=== PATIENT | female | born 1985 | race Two or more races ===

== ENCOUNTER 2016-10-26 15:41 | Emergency (ER) | payer BC ==
--- NOTE | 2016-10-26 16:53 | ER Document Report ---
ED Medical Screen (RME) - General TRAVEL OUTSIDE OF THE [place].S[place] IN LAST 30 DAYS: Yes COUNTRY TRAVELED TO/[facility]: [facility] <AKBAR WEBB - Last Filed: 10/26/16 16:51> <GABBY ROSE - Last Filed: 10/26/16 19:29> - General Chief Complaint: Abdominal Pain Stated Complaint: ABDOMINAL PAIN Time Seen by Provider: 10/26/16 16:45 Notes: Patient is a 31 year old female presenting to the emergency department for pain in her left lower quadrant. Patient states her pain is worse with walking, hitting bumps in the road while sitting in a car, and with palpation. Patient's symptoms were onset last night. Patient has had similar pain with intercourse. Patient denies any urinary symptoms but does have vaginal discharge. Patient has no known drug allergies. (AKBAR WEBB) - Related Data Allergies/Adverse Reactions: No Known Allergies Allergy (Verified 10/26/16 15:44) Past Medical History - Social History Cigarette use (# per day): No Chew tobacco use (# tins/day): No Frequency of alcohol use: None Drug Abuse: None Renal/ Medical History: Reports: Hx Kidney Stones. Denies: Hx Peritoneal Dialysis Surgical Hx: Negative <AKBAR WEBB - Last Filed: 10/26/16 16:51> Physical Exam <AKBAR WEBB - Last Filed: 10/26/16 16:51> <GABBY ROSE - Last Filed: 10/26/16 19:29> - Vital signs Vitals: Temp Pulse Resp BP Pulse Ox 98.0 F 99 18 144/82 H 99 10/26/16 15:44 10/26/16 15:44 10/26/16 15:44 10/26/16 15:44 10/26/16 15:44 - Notes Notes: GENERAL: Alert, interacts well. No acute distress. LUNGS: Clear to auscultation bilaterally, no wheezes, rales, or rhonchi. No respiratory distress. HEART: Regular rate and rhythm. No murmurs, gallops, or rubs. (AKBAR WEBB) Course - Laboratory Result Diagrams: 10/26/16 17:03 10/26/16 17:03 <GABBY ROSE - Last Filed: 10/26/16 19:29> - Vital Signs Vital signs: Temp Pulse Resp BP Pulse Ox 98.2 F 79 20 127/82 H 99 10/26/16 18:38 10/26/16 18:38 10/26/16 18:38 10/26/16 18:38 10/26/16 18:38 - Laboratory Laboratory results interpreted by me: 10/26/16 17:03 WBC 11.1 H RBC 5.39 H MCV 76 L MCH 25.0 L RDW 14.4 H Absolute Neutrophils 8.3 H Doctor's Discharge <AKBAR WEBB - Last Filed: 10/26/16 16:51> <GABBY ROSE - Last Filed: 10/26/16 19:29> - Discharge Clinical Impression: right ovarian cyst, LLQ pelvic/lower quadrant pain Condition: Good Disposition: HOME, SELF-CARE Instructions: Abdominal Pain ([facility]), Use of Ulbr-Tur-Mfbdnaw Ibuprofen ([facility]), Ovarian Cyst ([facility]), Pelvic Pain ([facility]) Additional Instructions: warm compress motrin to er if worse urine cultulre is pending see your doctor for follow up labs and imaging report given to you Please complete the patient satisfaction survey if you get one, and return it.. If you do not receive a survey, then you can go to the [facility] website, [email or web address] and place your comments about your very good care. Thank you very much. It was a pleasure being your medical provider today. Scribe Documentation - Scribe Written by Tay:: Tay Wolff 10/26/16 16:53 acting as scribe for :: Ciro <AKBAR WEBB - Last Filed: 10/26/16 16:51>
[2016-10-26 17:21] LABS: ABSOLUTE EOSINOPHILS # (AUTO) 0.1 10^3/uL (0.0-0.6); ABSOLUTE MONOCYTES (AUTO) 0.6 10^3/uL (0.1-1.4); ABSOLUTE NEUT (AUTO) 8.3 10^3/uL (1.7-8.2); BASOPHILS % (AUTO) 0.3 % (0-2); EOSINOPHILS % (AUTO) 0.8 % (0-6); HEMATOCRIT 40.9 % (36.0-47.0); HEMOGLOBIN 13.5 g/dL (12.0-15.5); HGB HCT DIFFERENCE -0.4; LYMPHOCYTES % (AUTO) 18.2 % (13-45); MEAN CORPUSCULAR VOLUME 76 fl (80-97); MONOCYTES % (AUTO) 5.3 % (3-13); RED BLOOD COUNT 5.39 10^6/uL (3.72-5.28); RED CELL DISTRIBUTION WIDTH 14.4 % (11.5-14.0); SEGMENTED NEUTROPHILS % (AUTO) 75.4 % (42-78); WHITE BLOOD COUNT 11.1 10^3/uL (4.0-10.5)
--- NOTE | 2016-10-26 17:31 | ER Document Report ---
ED GI/ - General Chief Complaint: Abdominal Pain Stated Complaint: ABDOMINAL PAIN Time Seen by Provider: 10/26/16 16:45 Mode of Arrival: Ambulatory Information source: Patient Notes: 31-year-old female complaining of left lower quadrant abdominal pain since last night. It has persisted today and she came to be evaluated after work. Normal vaginal discharge without odor. No urinary frequency urgency or dysuria. No nausea vomiting or diarrhea. She had 2 normal soft bowel movements today. No history of STD, , ovarian cyst, ulcerative colitis, Crohn's, diverticulitis. The pain is similar to when she has had a deep penetration with intercourse in the past. States she is trying to get . History of kidney stone but this is not the same kind of pain. She does not have any flank pain or hematuria. She is due to start menses soon. TRAVEL OUTSIDE OF THE [place] IN LAST 30 DAYS: Yes COUNTRY TRAV[facility]ED TO[facility]: [facility] - Related Data Allergies/Adverse Reactions: No Known Allergies Allergy (Verified 10/26/16 15:44) Past Medical History - General Information source: Patient - Social History Smoking Status: Never Smoker Cigarette use (# per day): No Chew tobacco use (# tins/day): No Frequency of alcohol use: None Drug Abuse: None Lives with: Spouse/Significant other Family History: None Patient has suicidal ideation: No Patient has homicidal ideation: No - Medical History Medical History: Negative Renal/ Medical History: Reports: Hx Kidney Stones Surgical Hx: Negative Review of Systems - Review of Systems Constitutional: No symptoms reported EENT: No symptoms reported Cardiovascular: No symptoms reported Respiratory: No symptoms reported Gastrointestinal: See HPI Genitourinary: No symptoms reported Female Genitourinary: No symptoms reported Musculoskeletal: No symptoms reported Skin: No symptoms reported Hematologic/Lymphatic: No symptoms reported Neurological/Psychological: No symptoms reported Physical Exam - Vital signs Vitals: Temp Pulse Resp BP Pulse Ox 98.0 F 99 18 144/82 H 99 10/26/16 15:44 10/26/16 15:44 10/26/16 15:44 10/26/16 15:44 10/26/16 15:44 Interpretation: Normal - General General appearance: Appears well, Alert - HEENT Head: Normocephalic, Atraumatic Eyes: Normal Conjunctiva: Normal Pupils: PERRL Neck: Supple. No: Lymphadenopathy - Respiratory Respiratory status: No respiratory distress Chest status: Nontender Breath sounds: Normal Chest palpation: Normal - Cardiovascular Rhythm: Regular Heart sounds: Normal auscultation Murmur: No - Abdominal Inspection: Normal Distension: No distension Bowel sounds: Normal Tenderness: Tender - LL quadrant, left pelvis. No: Guarding, Rebound Organomegaly: No organomegaly - Back Back: Normal, Nontender. No: CVA tenderness - Extremities General upper extremity: Normal inspection, Nontender, Normal color, Normal ROM , Normal temperature General lower extremity: Normal inspection, Nontender, Normal color, Normal ROM , Normal temperature, Normal weight bearing. No: Radha's sign - Neurological Neuro grossly intact: Yes Cognition: Normal Orientation: AAOx4 [place] Coma Scale Eye Opening: Spontaneous [place] Coma Scale Verbal: Oriented [place] Coma Scale Motor: Obeys Commands [place] Coma Scale Total: 15 Speech: Normal Motor strength normal: LUE, RUE, LLE, RLE Sensory: Normal - Psychological Associated symptoms: Normal affect, Normal mood - Skin Skin Temperature: Warm Skin Moisture: Dry Skin Color: Normal Skin irregularity: negative: Rash Course - Re-evaluation Re-evalutation: 10/26/16 17:36 going to US now. 10/26/16 18:42 labs normal, negative test. mild elevation of white count without shift, US right ovarian cyst with possible rupture, no torsion. I explained to her that this does not explain her left pelvic pain and that she needs to return to the emergency room this weekend if worse and can take Motrin for pain. Pt did not want pelvic exam offered, she will see your doctor. recent pelvic/labs was normal 10/26/16 18:44 - Vital Signs Vital signs: Temp Pulse Resp BP Pulse Ox 98.2 F 79 20 127/82 H 99 10/26/16 18:38 10/26/16 18:38 10/26/16 18:38 10/26/16 18:38 10/26/16 18:38 - Laboratory Result Diagrams: 10/26/16 17:03 10/26/16 17:03 Laboratory results interpreted by me: 10/26/16 17:03 WBC 11.1 H RBC 5.39 H MCV 76 L MCH 25.0 L RDW 14.4 H Absolute Neutrophils 8.3 H Discharge - Discharge Clinical Impression: right ovarian cyst, LLQ pelvic/lower quadrant pain Condition: Good Disposition: HOME, SELF-CARE Instructions: Abdominal Pain ([facility]), Pelvic Pain ([facility]), Ovarian Cyst ([facility]), Use of Qrxp-Xei-Jbknxml Ibuprofen ([facility]) Additional Instructions: warm compress motrin to er if worse urine cultulre is pending see your doctor for follow up labs and imaging report given to you Please complete the patient satisfaction survey if you get one, and return it.. If you do not receive a survey, then you can go to the [facility] website, [email or web address] and place your comments about your very good care. Thank you very much. It was a pleasure being your medical provider today.
[2016-10-26 17:42] LABS: ALANINE AMINOTRANSFERASE 28 U/L (9-52); ALKALINE PHOSPHATASE 80 U/L (38-126); ANION GAP 10 (5-19); ASPARTATE AMINO TRANSFERASE 21 U/L (14-36); BILIRUBIN,DIRECT 0.3 mg/dL (0.0-0.4); BILIRUBIN,TOTAL 0.3 mg/dL (0.2-1.3); BLOOD UREA NITROGEN 13 mg/dL (7-20); CALCIUM 9.7 mg/dL (8.4-10.2); CARBON DIOXIDE 25 mmol/L (22-30); CHLORIDE 104 mmol/L (98-107); CREATININE RESULT 0.69 mg/dL (0.52-1.25); GLUCOSE 82 mg/dL (75-110); POTASSIUM 4.5 mmol/L (3.6-5.0); SODIUM 138.7 mmol/L (137-145); TOTAL PROTEIN 7.6 g/dL (6.3-8.2)
[2016-10-26 17:52] LABS: APPEARANCE,URINE CLEAR; BILIRUBIN,URINE NEGATIVE (NEGATIVE); GLUCOSE, URINE NEGATIVE (NEGATIVE); KETONES,URINE NEGATIVE (NEGATIVE); LEUKOCYTE ESTERASE,URINE NEGATIVE (NEGATIVE); NITRITE,URINE NEGATIVE (NEGATIVE); PROTEIN,URINE NEGATIVE (NEGATIVE); URINE SPECIFIC GRAVITY 1.013; UROBILINOGEN,URINE NEGATIVE mg/dL (<2.0)
--- NOTE | 2016-10-26 18:17 | RADIOLOGY REPORT (SQ) ---
EXAM DESCRIPTION: U/S NON OB PEL TV W/DOPPLER COMPLETED DATE/TIME: 10/26/2016 6:02 pm REASON FOR STUDY: ?cyst, ? torsion COMPARISON: None. TECHNIQUE: Dynamic and static grayscale images acquired of the pelvis via transvaginal approach and recorded on PACS. Additional selected color Doppler and spectral images recorded. LIMITATIONS: None. FINDINGS: UTERUS: Contour normal. No mass. ENDOMETRIAL STRIPE: No focal or generalized thickening. No masses. CERVIX: A nabothian cyst is present. RIGHT OVARY: There is a heterogeneous area in the right ovary measuring 33 x 23 x 23 mm. RIGHT OVARY DOPPLER: Normal arterial vascular flow without evidence for torsion. LEFT OVARY: No abnormal masses. LEFT OVARY DOPPLER: Normal arterial vascular flow without evidence for torsion. FREE FLUID: There is a small amount free fluid in the right adnexa. OTHER: No other significant finding. MEASUREMENTS: UTERUS: 6.2 x 3.9 x 3.6 cm. ENDOMETRIAL STRIPE: 7 mm. RIGHT OVARY: 4.3 x 3.2 x 1.9 cm. LEFT OVARY: 2.7 x 2.3 x 1.9 cm. IMPRESSION: There is a small amount of free fluid in the right adnexa and there is a heterogeneous a dawit the right ovary that could represent a ruptured cyst. Follow-up as clinically indicated. TECHNICAL DOCUMENTATION: JOB ID: [id number] [employer]- All Rights Reserved
[2016-10-26] MEDS ORDERED: IBUPROFEN 800 MG TABLET PO ONE (18:31)
[2016-10-26 18:43] VITALS: BP 127/82
== END 2016-10-26 18:51 | disposition home or self-care (01) ==
LOC: ER 15:41
DX: R10.32 Left lower quadrant pain (principal); N83.201 Unspecified ovarian cyst, right side; R10.2 Pelvic and perineal pain; D72.829 Elevated white blood cell count, unspecified; Z87.442 Personal history of urinary calculi
CPT/HCPCS: 36415; 76830; 80053; 81001; 81025; 85025; 93976; 99284

== ENCOUNTER → 2017-07-05 | Outpatient (CLI) | payer BC ==
--- NOTE | 2017-07-05 17:03 | RADIOLOGY REPORT (SQ) ---
EXAM DESCRIPTION: U/S NON-OB PELVIS TV W/O DOP COMPLETED DATE/TIME: 07/05/2017 4:49 pm REASON FOR STUDY: ABD PAIN, DYSMENORRHEA R10.9 UNSPECIFIED ABDOMINAL PAIN N94.6 DYSMENORRHEA, UNSP ECIFIED LMP 06/29/2017 COMPARISON: None. TECHNIQUE: Dynamic and static grayscale images acquired of the pelvis via transvaginal approach and recorded on PACS. Additional selected color Doppler and spectral images recorded. LIMITATIONS: None. FINDINGS: UTERUS: Contour normal. No mass. ENDOMETRIAL STRIPE: No focal or generalized thickening. No masses. CERVIX: 2.1 cm. No nabothian cysts. RIGHT ADNEXUM: No abnormal masses. RIGHT OVARY AND DOPPLER: Normal size. 1.9 x 3.6 x 1.6 cm. LEFT ADNEXUM: No abnormal masses. LEFT OVARY AND DOPPLER: Ovary not seen. FREE FLUID: None noted. OTHER: No other significant finding. MEASUREMENTS: UTERUS: 5.5 x 4.2 x 4.1 cm. ENDOMETRIAL STRIPE: 1.9 mm. RIGHT OVARY: 1.9 x 3.6 x 1.6 cm. LEFT OVARY: Ovary not seen. IMPRESSION: NORMAL TRANSVAGINAL PELVIC ULTRASOUND. TECHNICAL DOCUMENTATION: JOB ID: [id number] [employer]- All Rights Reserved Reading location - IP/workstation name: [email or web address]
== END ==
LOC: RAD 16:10
PROVIDERS: ATTEND Obstetrics & Gynecology Gynecology
DX: R10.9 Unspecified abdominal pain (principal); N94.6 Dysmenorrhea, unspecified
CPT/HCPCS: 76830

== ENCOUNTER 2018-04-03 18:57 | Emergency (ER) | payer BC ==
[2018-04-03] MEDS ORDERED: DIPHENHYDRAMINE HCL 50 MG/ML VIAL IV ONE ×2 (19:37→19:38)
[2018-04-03] MEDS ORDERED: DIPHENHYDRAMINE HCL 50 MG CAPSULE PO ONE (19:37)
[2018-04-03] MEDS ORDERED: FAMOTIDINE INJ/PF 20 MG/2 ML SDV IV ONE (19:38)
[2018-04-03] MEDS ORDERED: DIPHENHYDRAMINE HCL 25 MG CAPSULE PO ONE (19:38)
--- NOTE | 2018-04-03 19:41 | ER Document Report ---
ED Medical Screen (RME) - General Chief Complaint: Vaginal Bleeding Stated Complaint: VAGINAL BLEEDING Time Seen by Provider: 04/03/18 19:32 Primary Care Provider: LIZETH MURCIA MD [Primary Care Provider] - Follow up as needed TRAVEL OUTSIDE OF THE [place] IN LAST 30 DAYS: No COUNTRY TRAVELED TO[facility]FROM: [facility] Notes: 04/03/18 19:40 Approximate 7 weeks with vaginal bleeding spotting also having diffuse itching and hive patient states she recently had her hair dyed did not rinse out the dye and therefore now is itching. Benadryl Pepcid was ordered p.o. while the patient was waiting for her IV - Related Data Allergies/Adverse Reactions: No Known Allergies Allergy (Verified 10/26/16 15:44) Past Medical History - General Last Menstrual Period: 02/11/18 - Social History Chew tobacco use (# tins/day): No Frequency of alcohol use: None Drug Abuse: None Renal/ Medical History: Reports: Hx Kidney Stones. Denies: Hx Peritoneal Dialysis Physical Exam - Vital signs Vitals: Temp Pulse Resp BP Pulse Ox 98.1 F 114 H 16 141/89 H 97 04/03/18 19:25 04/03/18 19:25 04/03/18 19:25 04/03/18 19:25 04/03/18 19:25 Course - Vital Signs Vital signs: Temp Pulse Resp BP Pulse Ox 98.1 F 114 H 16 141/89 H 97 04/03/18 19:25 04/03/18 19:25 04/03/18 19:25 04/03/18 19:25 04/03/18 19:25 Doctor's Discharge - Discharge Referrals: LIZETH MURCIA MD [Primary Care Provider] - Follow up as needed
[2018-04-03 20:26] LABS: APPEARANCE,URINE SLIGHTLY-CLOUDY; BILIRUBIN,URINE NEGATIVE (NEGATIVE); COLOR,URINE YELLOW; GLUCOSE, URINE NEGATIVE (NEGATIVE); KETONES,URINE NEGATIVE (NEGATIVE); LEUKOCYTE ESTERASE,URINE NEGATIVE (NEGATIVE); NITRITE,URINE NEGATIVE (NEGATIVE); PROTEIN,URINE 30 mg/dL (NEGATIVE); URINE SPECIFIC GRAVITY 1.013; UROBILINOGEN,URINE NEGATIVE mg/dL (<2.0)
[2018-04-03 21:02] LABS: ABSOLUTE LYMPHOCYTES (AUTO) 1.3 10^3/uL (0.5-4.7); ABSOLUTE MONOCYTES (AUTO) 0.5 10^3/uL (0.1-1.4); ABSOLUTE NEUT (AUTO) 11.6 10^3/uL (1.7-8.2); BASOPHILS % (AUTO) 0.1 % (0-2); HEMATOCRIT 40.4 % (36.0-47.0); HEMOGLOBIN 13.4 g/dL (12.0-15.5); MEAN CORPUSCULAR HEMOGLOBIN 24.5 pg (27.0-33.4); MEAN CORPUSCULAR HGB CONC 33.2 g/dL (32.0-36.0); MEAN CORPUSCULAR VOLUME 74 fl (80-97); MONOCYTES % (AUTO) 3.6 % (3-13); PLATELET COUNT 239 10^3/uL (150-450); RED BLOOD COUNT 5.47 10^6/uL (3.72-5.28); RED CELL DISTRIBUTION WIDTH 15.4 % (11.5-14.0); SEGMENTED NEUTROPHILS % (AUTO) 86.3 % (42-78); TOTAL CELLS COUNTED % (AUTO) 100 %; WHITE BLOOD COUNT 13.4 10^3/uL (4.0-10.5)
[2018-04-03 21:19] LABS: ANION GAP 12 (5-19); BLOOD UREA NITROGEN 11 mg/dL (7-20); CALCIUM 9.3 mg/dL (8.4-10.2); CARBON DIOXIDE 22 mmol/L (22-30); CHLORIDE 103 mmol/L (98-107); GLUCOSE 98 mg/dL (75-110); POTASSIUM 3.9 mmol/L (3.6-5.0); SODIUM 137.1 mmol/L (137-145)
--- NOTE | 2018-04-03 21:40 | RADIOLOGY REPORT (SQ) ---
US PELVIS HISTORY: Early . Pelvic pain. COMPARISON: None. TECHNIQUE: Grayscale, color Doppler, and spectral Doppler ultrasound images of the pelvis were obtained. FINDINGS: There is an intrauterine gestational sac with a yolk sac and pole visualized. The gestational sac has a normal contour. The heart rate measures 102 bpm. The crown-rump length measuring 1.2 cm corresponding to 7 weeks 2 days of . The cervix measures 1.8 cm in length. The ovaries are not well-visualized. No pelvic free fluid is seen. IMPRESSION: Single live IUP with estimated gestational age 7 weeks 2 days.
--- NOTE | 2018-04-03 22:38 | ER Document Report ---
ED General - General Chief Complaint: Vaginal Bleeding Stated Complaint: VAGINAL BLEEDING Time Seen by Provider: 04/03/18 19:32 Primary Care Provider: LIZETH MURCIA MD [Primary Care Provider] - Follow up as needed Notes: Patient is a 32-year-old female, at 7 weeks gestation by 6-week ultrasound, with chief complaint of lower abdominal cramping and initial vaginal bleeding which has slowed down now and is vaginal spotting. Symptoms started earlier today. Denies hematuria, flank pain, dysuria, vaginal discharge, current abdominal pain. Denies trauma. Has medical history of kidney stones, she states she definitely does not feel like she is passing a kidney stone. Patient stating that she was itching mainly in her hair to leave and come to be evaluated here, she will washes shot later. She already received antihistamines from triage, states she has no current symptoms of itching. No rash. No other allergic type symptoms reported including throat or airway. TRAVEL OUTSIDE OF THE [place] IN LAST 30 DAYS: No COUNTRY TRAVELED TO/FROM: [facility] - Related Data Allergies/Adverse Reactions: No Known Allergies Allergy (Verified 10/26/16 15:44) Past Medical History - General Information source: Patient Last Menstrual Period: 02/11/18 - Social History Smoking Status: Never Smoker Chew tobacco use (# tins/day): No Frequency of alcohol use: None Drug Abuse: None Lives with: Family Family History: None Patient has suicidal ideation: No Patient has homicidal ideation: No Renal/ Medical History: Reports: Hx Kidney Stones. Denies: Hx Peritoneal Dialysis Surgical Hx: Negative - Immunizations Immunizations up to date: Yes Hx Diphtheria, Pertussis, Tetanus Vaccination: Yes Review of Systems - Review of Systems Constitutional: No symptoms reported EENT: No symptoms reported Cardiovascular: No symptoms reported Respiratory: No symptoms reported Gastrointestinal: See HPI Genitourinary: See HPI Female Genitourinary: See HPI Musculoskeletal: No symptoms reported Skin: No symptoms reported Hematologic/Lymphatic: No symptoms reported Neurological/Psychological: No symptoms reported Physical Exam - Vital signs Vitals: Temp Pulse Resp BP Pulse Ox 98.1 F 114 H 16 141/89 H 97 04/03/18 19:25 04/03/18 19:25 04/03/18 19:25 04/03/18 19:25 04/03/18 19:25 - Notes Notes: GENERAL: Alert, interacts well. No acute distress. HEAD: Normocephalic, atraumatic. EYES: Pupils equal, round, and reactive to light. Extraocular movements intact. ENT: Oral mucosa moist, tongue midline. Oropharynx unremarkable. Airway patent. Nares patent, no nasal septal hematoma, TM's intact. NECK: Full range of motion. Supple. Trachea midline. LUNGS: Clear to auscultation bilaterally, no wheezes, rales, or rhonchi. No respiratory distress. HEART: Regular rate and rhythm. No murmur ABDOMEN: Soft, non-tender. Non-distended. Bowel sounds present in all 4 quad rants. GENITOURINARY: Deferred EXTREMITIES: Moves all 4 extremities spontaneously. No edema, normal radial and dorsalis pedis pulses bilaterally. No cyanosis. BACK: no cervical, thoracic, lumbar midline tenderness. No saddle anesthesia, normal distal neurovascular exam. NEUROLOGICAL: Alert and oriented x3. Normal speech. [cranial nerves II through XII grossly intact]. PSYCH: Normal affect, normal mood. SKIN: Warm, dry, normal turgor. No rashes or lesions noted. Course - Re-evaluation Re-evalutation: CBC unremarkable except for mild leukocytosis, nonspecific given patient is absolutely no tenderness on exam of her abdomen. She has no CVA tenderness or flank tenderness reported. She does have hematuria but I suspect this is contamination from vaginal bleeding because patient has absolutely no symptoms of passing a kidney stone. She is familiar with this symptom and denies it. HCG is elevated. RhoGam is not indicated. Ultrasound showing living IUP with no apparent complications. Provided with copy of the report. Discussed results and recommendations in detail with patient and family. Patient will perform pelvic rest, follow-up with PROFESSOR OF BIOSTATISTICS, and return for any concerning symptoms which were discussed. They state understanding and agreement. Vital signs rechecked and unremarkable. Stable at time of discharge. - Vital Signs Vital signs: Temp Pulse Resp BP Pulse Ox 98.3 F 93 16 133/72 H 98 04/03/18 22:47 04/03/18 22:47 04/03/18 22:47 04/03/18 22:47 04/03/18 22:47 - Laboratory Result Diagrams: 04/03/18 20:44 04/03/18 20:44 Laboratory results interpreted by me: 04/03/18 04/03/18 04/03/18 19:00 20:44 20:44 WBC 13.4 H RBC 5.47 H MCV 74 L MCH 24.5 L RDW 15.4 H Seg Neutrophils % 86.3 H Lymphocytes % 10.0 L Absolute Neutrophils 11.6 H Beta HCG, Quant 72756.00 H Urine Protein 30 H Urine Blood LARGE H Discharge - Discharge Clinical Impression: Vaginal bleeding affecting early , Abdominal cramping Condition: Stable Disposition: HOME, SELF-CARE Additional Instructions: Despite the vaginal bleeding and cramping the ultrasound does show a living in the uterus with no obvious problems. Blood counts do not show any concerning abnormalities. The exact cause of the bleeding is uncertain at this time. Recommendation for this to resolve is pelvic rest (no running, jumping, heavy lifting, or sexual intercourse until cleared by PROFESSOR OF BIOSTATISTICS). Return if you worsen including heavy bleeding with dizziness, passing out, severe worsening pain, fever, or any other concerning or worsening symptoms. Forms: Elevated Blood Pressure Referrals: LIZETH MURCIA MD [Primary Care Provider] - Follow up as needed
[2018-04-03 22:51] VITALS: BP 133/72
== END 2018-04-03 23:32 | disposition home or self-care (01) ==
LOC: ER 18:57
DX: O20.9 Hemorrhage in early pregnancy, unspecified (principal); O26.891 Other specified pregnancy related conditions, first trimester; R10.30 Lower abdominal pain, unspecified; O99.111 Other diseases of the blood and blood-forming organs and certain disorders involving the immune mechanism complicating pregnancy, first trimester; D72.829 Elevated white blood cell count, unspecified; Z3A.01 Less than 8 weeks gestation of pregnancy; Z87.442 Personal history of urinary calculi
CPT/HCPCS: 99284; 96374; 96375; 86900; 86901; 36415; 84702; 85025; 80048; 81001; 76817; 93976; J1200; S0028

== ENCOUNTER 2019-07-22 17:04 | Outpatient (CLI) | payer BC ==
[2019-07-22 17:36] LABS: APPEARANCE,URINE CLEAR; BILIRUBIN,URINE NEGATIVE (NEGATIVE); COLOR,URINE YELLOW; GLUCOSE, URINE NEGATIVE (NEGATIVE); KETONES,URINE NEGATIVE (NEGATIVE); LEUKOCYTE ESTERASE,URINE NEGATIVE (NEGATIVE); NITRITE,URINE NEGATIVE (NEGATIVE); PROTEIN,URINE NEGATIVE (NEGATIVE); URINE SPECIFIC GRAVITY 1.014; UROBILINOGEN,URINE NEGATIVE mg/dL (<2.0)
--- NOTE | 2019-07-22 17:52 | Non Stress Test Report ---
Non Stress Test Datetime Report Generated by CPN: 07/22/2019 17:52 DEMOGRAPHIC Test Number: 1 EGA NST: 35.5 VITAL SIGNS Temperature - NST: 98.0 Pulse - NST: 114 RESP - NST: 16 NBPSYS NST: 135 NBPDIA NST: 74 MONITORING Monitor Explained: Monitor Explained; Test Explained; Patient Verbalized Understanding Time on Monitor: 07/22/2019 17:16 Time off Monitor: 07/22/2019 17:51 NST Duration: 35 NST INTERVENTIONS NST Interventions: PO Hydration; Reposition Patient Physician Notified NST: Dr. Hagen on unit, reviewed fht BABY A: [id number] BABY A Movement : Present Contraction Frequency : 0 FHR Baseline : 135 Accelerations : 15X15 Decelerations : None Variability : Moderate 6-25bpm NST Review: Meets Criteria for Reactive NST NST Review and Verified By : Ab Almaguer RN NST Results: Reactive NST REPORT Report Trigger: Send Report
[2019-07-22 18:05] LABS: URINE AMPHETAMINES SCREEN NEGATIVE; URINE BARBITURATES SCREEN NEGATIVE; URINE BENZODIAZEPINES SCREEN NEGATIVE; URINE COCAINE SCREEN NEGATIVE; URINE MARIJUANA (THC) SCREEN NEGATIVE; URINE METHADONE SCREEN NEGATIVE; URINE PHENCYCLIDINE SCREEN NEGATIVE
== END 2019-07-22 18:08 | disposition home or self-care (01) ==
LOC: LC 17:04
PROVIDERS: ATTEND Student in an Organized Health Care Education/Training Program
DX: O36.8130 Decreased fetal movements, third trimester, not applicable or unspecified (principal); Z3A.35 35 weeks gestation of pregnancy
CPT/HCPCS: 59025; 80307; 81005

== ENCOUNTER → 2019-12-31 | Outpatient (CLI) | payer BC ==
--- NOTE | 2019-12-31 09:57 | WOMENS IMAGING REPORT ---
EXAM DESCRIPTION: U/S ABDOMEN LIMITED IMAGES COMPLETED DATE/TIME: 12/31/2019 7:58 am REASON FOR STUDY: R10.9 UNSPECIFIED ABDOMINAL PAIN R10.9 UNSPECIFIED ABDOMINAL PAIN COMPARISON: None. TECHNIQUE: Dynamic and static grayscale images acquired of the abdomen and recorded on PACS. Additio nal selected color Doppler and spectral images recorded. LIMITATIONS: None. FINDINGS: PANCREAS: No masses. Visualized pancreatic duct normal caliber. LIVER: Normal size Mild fatty infiltration. No focal masses. LIVER VASCULATURE: Normal directional flow of the main portal vein and hepatic veins. GALLBLADDER: Gallstone(s). No pericholecystic fluid. No wall thickening. ULTRASOUND-DETECTED GALLO'S SIGN: Negative. INTRAHEPATIC DUCTS AND COMMON DUCT: CBD and intrahepatic ducts normal caliber. No filling defects. INFERIOR VENA CAVA: Normal flow. AORTA: No aneurysm. RIGHT KIDNEY: Normal size. Normal echogenicity. No solid or suspicious masses. No hydronephros is. No calcifications. PERITONEAL AND RIGHT PLEURAL SPACE: No ascites or effusions. OTHER: No other significant findings. IMPRESSION: 1. Cholelithiasis without evidence of acute cholecystitis. 2. Fatty liver. TECHNICAL DOCUMENTATION: JOB ID: [id number] [employer]- All Rights Reserved Reading location - IP/workstation name: [email or web address]
== END ==
LOC: WI 06:57
PROVIDERS: ATTEND Internal Medicine Gastroenterology
DX: K80.20 Calculus of gallbladder without cholecystitis without obstruction (principal); K76.0 Fatty (change of) liver, not elsewhere classified; R10.9 Unspecified abdominal pain
CPT/HCPCS: 76705